=== PATIENT | female | born 1965 | race Two or more races ===

== ENCOUNTER → 2017-02-23 | Outpatient (CLI) | payer OTHER ==
[~2017-02-23] MED LIST: ERYTHROMYCIN; ESTRADIOL; LEVO25TA2 PO
== END | disposition home or self-care (01) ==
LOC: LAB 12:06
PROVIDERS: ATTEND Internal Medicine Endocrinology, Diabetes & Metabolism
DX: E89.0 Postprocedural hypothyroidism (principal)
CPT/HCPCS: 36415; 84439; 84443

== ENCOUNTER → 2017-05-24 | Outpatient (CLI) | payer OTHER | LOC: LAB 17:41 | PROVIDERS: ATTEND Obstetrics & Gynecology | DX: Z02.9 Encounter for administrative examinations, unspecified (principal) ==

== ENCOUNTER → 2017-05-26 | Outpatient (CLI) | payer OTHER ==
[2017-05-26 14:50] LABS: HEMOGLOBIN 12.2 g/dL (11.7-16.4); WHITE BLOOD COUNT 5.3 x10^3/uL (3.4-10)
== END | disposition home or self-care (01) ==
LOC: LAB 14:14
PROVIDERS: ATTEND Obstetrics & Gynecology
DX: E55.9 Vitamin D deficiency, unspecified (principal); N93.8 Other specified abnormal uterine and vaginal bleeding; N92.1 Excessive and frequent menstruation with irregular cycle
CPT/HCPCS: 36415; 82306; 85025

== ENCOUNTER → 2018-04-28 | Outpatient (CLI) | payer OTHER ==
[2018-04-28 19:03] LABS: FREE T4 (FREE THYROXINE) 1.09 ng/dL (0.76-1.46); THYROID STIMULATING HORMONE 3.01 mIU/L (0.358-3.740)
== END | disposition home or self-care (01) ==
LOC: LAB 11:13
PROVIDERS: ATTEND Internal Medicine Endocrinology, Diabetes & Metabolism
DX: E55.9 Vitamin D deficiency, unspecified (principal); E34.9 Endocrine disorder, unspecified; E89.0 Postprocedural hypothyroidism
CPT/HCPCS: 36415; 82306; 82670; 83001; 84439; 84443

== ENCOUNTER → 2018-09-19 | Outpatient (CLI) | payer OTHER ==
[2018-09-19 14:04] LABS: FREE T4 (FREE THYROXINE) 0.82 ng/dL (0.76-1.46); THYROID STIMULATING HORMONE 10.3 mIU/L (0.358-3.740)
== END | disposition home or self-care (01) ==
LOC: LAB 13:30
PROVIDERS: ATTEND Physician Assistant Medical
DX: E89.0 Postprocedural hypothyroidism (principal)
CPT/HCPCS: 36415; 84439; 84443

== ENCOUNTER → 2018-11-28 | Outpatient (CLI) | payer OTHER | END | disposition home or self-care (01) | LOC: LAB 12:45 | PROVIDERS: ATTEND Obstetrics & Gynecology Female Pelvic Medicine and Reconstructive Surgery | DX: E34.9 Endocrine disorder, unspecified (principal) | CPT/HCPCS: 36415; 82670; 82677; 83001; 83002 ==

== ENCOUNTER 2019-03-11 07:14 | Outpatient (CLI) | payer OTHER | END 2019-03-11 23:59 | disposition home or self-care (01) | LOC: CFH 07:14 | PROVIDERS: ATTEND Obstetrics & Gynecology Female Pelvic Medicine and Reconstructive Surgery | DX: Z12.31 Encounter for screening mammogram for malignant neoplasm of breast (principal); R93.89 Abnormal findings on diagnostic imaging of other specified body structures | CPT/HCPCS: 76830; 77067 ==

== ENCOUNTER → 2019-07-16 | Outpatient (CLI) | payer OTHER ==
[2019-07-16 14:24] LABS: FREE T4 (FREE THYROXINE) 1.17 ng/dL (0.76-1.46)
== END | disposition home or self-care (01) ==
LOC: LAB 13:53
PROVIDERS: ATTEND Internal Medicine Endocrinology, Diabetes & Metabolism
DX: E89.0 Postprocedural hypothyroidism (principal)
CPT/HCPCS: 36415; 84439; 84443

== ENCOUNTER 2019-08-17 14:20 | Emergency (ER) | payer OTHER ==
[~2019-08-17] VITALS: Ht 167.6 cm; Wt 74.2 kg
[2019-08-17 14:31] VITALS: BP 142/55
== END 2019-08-17 16:11 | disposition home or self-care (01) ==
LOC: ED 16:09
DX: M25.512 Pain in left shoulder (principal); R20.0 Anesthesia of skin
CPT/HCPCS: 99283

== ENCOUNTER → 2019-08-27 | Outpatient (CLI) | payer OTHER | END | disposition home or self-care (01) | LOC: RAD 11:41 | PROVIDERS: ATTEND Internal Medicine Hematology & Oncology | DX: M25.512 Pain in left shoulder (principal) ==

== ENCOUNTER 2019-09-04 09:07 | Outpatient (CLI) | payer OTHER ==
[2019-09-04 09:40] LABS: FREE T4 (FREE THYROXINE) 1.26 ng/dL (0.76-1.46)
== END 2019-09-04 23:59 | disposition home or self-care (01) ==
LOC: LAB 09:07
PROVIDERS: ATTEND Internal Medicine Endocrinology, Diabetes & Metabolism
DX: E89.0 Postprocedural hypothyroidism (principal)
CPT/HCPCS: 36415; 84439; 84443

== ENCOUNTER → 2020-04-29 | Outpatient (CLI) | payer OTHER ==
[2020-04-29 11:46] LABS: FREE T4 (FREE THYROXINE) 1.3 ng/dL (0.76-1.46)
== END | disposition home or self-care (01) ==
LOC: LAB 11:05
PROVIDERS: ATTEND Internal Medicine Endocrinology, Diabetes & Metabolism
DX: E89.0 Postprocedural hypothyroidism (principal)
CPT/HCPCS: 36415; 84439; 84443

== ENCOUNTER → 2020-06-20 | Outpatient (CLI) | payer OTHER | END | disposition home or self-care (01) | LOC: CFH 07:52 | PROVIDERS: ATTEND Obstetrics & Gynecology Female Pelvic Medicine and Reconstructive Surgery | DX: Z12.31 Encounter for screening mammogram for malignant neoplasm of breast (principal) | CPT/HCPCS: 77067 ==

== ENCOUNTER → 2020-07-07 | Outpatient (CLI) | payer OTHER ==
[2020-07-07 14:44] LABS: FREE T4 (FREE THYROXINE) 1.1 ng/dL (0.76-1.46)
== END | disposition home or self-care (01) ==
LOC: LAB 14:12
PROVIDERS: ATTEND Nurse Practitioner Primary Care
DX: E89.0 Postprocedural hypothyroidism (principal)
CPT/HCPCS: 36415; 84439; 84443

== ENCOUNTER 2021-03-15 20:32 | Inpatient (IN) | payer OTHER ==
[~2021-03-15] VITALS: Ht 167.6 cm; Wt 74.9 kg
[2021-03-15] MEDS ORDERED: ONDANSETRON ODT 4 MG PO ONE (21:00)
[2021-03-15] MEDS ORDERED: PLEASE ENTER HEIGHT AND WEIGHT MC SCH (21:00)
[2021-03-15] MEDS ORDERED: SODIUM CHLORIDE FLUSH 10ML SYR IVF ONE (21:30)
[2021-03-15] MEDS ORDERED: SODIUM CHLORIDE 0.9% 1,000ML IVBOLUS ONE (21:30)
[2021-03-15] MEDS ORDERED: METOCLOPRAMIDE 5 MG/ML, 2ML IVPush ONE (21:30)
[2021-03-15] MEDS ORDERED: DIPHENHYDRAMINE 50 MG/ML, 1ML IVPush ONE (21:30)
[2021-03-15] MEDS ORDERED: DIPHENHYDRAMINE 50 MG/ML, 1ML ONE (21:38)
[2021-03-15] MEDS ORDERED: MORPHINE SULFATE 4 MG/ML, 1ML ONE ×2 (21:38→23:58)
[2021-03-15] MEDS ORDERED: METOCLOPRAMIDE 5 MG/ML, 2ML ONE (21:38)
--- NOTE | 2021-03-15 21:42 | NUR ---
BEDSIDE REPORT TO DALLAS PATINO
[2021-03-15] MEDS: MORPHINE SULFATE 4 MG/ML, 1ML IVPush PRN (21:46)
--- NOTE | 2021-03-15 21:51 | NUR ---
PT MEDICATED PER SEP, TRANSPORTED TO [facility].
[2021-03-15 22:14] LABS: BASOPHILS % (AUTO) 1 % (0-1); EOSINOPHILS % (AUTO) 1 % (1-7); LYMPHOCYTES % (AUTO) 26 % (22-44); MEAN CORPUSCULAR HEMOGLOBIN 31.8 pg (27.0-34.8); MEAN CORPUSCULAR HGB CONC 34.7 g/dL (32.4-35.8); MEAN PLATELET VOLUME 9.4 fL (7.4-10.4); MONOCYTES % (AUTO) 6 % (2-9); NEUTROPHILS % (AUTO) 68 % (42-75); PLATELET COUNT 158 x10^3/uL (130-400); RED BLOOD COUNT 4.96 x10^6/uL (3.82-5.3); RED CELL DISTRIBUTION WIDTH 13.1 % (9.6-15.2)
--- NOTE | 2021-03-15 22:14 | NUR ---
PT UNABLE TO PROVIDE URINE SAMPLE AT THIS TIME.
[2021-03-15 22:23] LABS: ALANINE AMINOTRANSFERASE 20 U/L (12-78); ALBUMIN 3.7 g/dL (3.4-5.0); ANION GAP 9 mmol/L (5-15); CALCIUM 9.5 mg/dL (8.5-10.1); CHLORIDE 106 mmol/L (98-107); CREATININE 0.93 mg/dL (0.55-1.02)
[2021-03-15 22:25] LABS: ALKALINE PHOSPHATASE 90 U/L (45-117); BILIRUBIN,TOTAL 0.5 mg/dL (0.2-1.0)
--- NOTE | 2021-03-15 22:45 | NUR ---
PT TRANSPORTED TO CT.
[2021-03-15] MEDS ORDERED: OMNIPAQUE 350 MG/ML, 100ML BOTTLE ONE (22:50)
--- NOTE | 2021-03-15 22:58 | NUR ---
REPORT TO LALA PATINO.
[2021-03-15 23:21] LABS: MICROSCOPIC AUTO
[2021-03-16] MEDS: MORPHINE SULFATE 4 MG/ML, 1ML IVPush PRN
--- NOTE | 2021-03-16 00:49 | NUR ---
WENT INTO PLACE NG TUBE FOR PATIENT AND PATIENT INSISTENT THAT SHE PUT IN HER OWN NG TUBE. RN EXPLAINED TO PATIENT THAT SHE CANNOT PLACE HER OWN NG TUBE BECAUSE OF LIABILITY PURPOSES AND HER OWN SAFETY. PATIENT STILL DENIED LETTING RN TO PLACE NG TUBE. ASSIGNMENT DESK EDITOR NICHO NOTIFIED AND WENT INTO SPEAK WITH PATIENT. PATIENT STILL DENIED LETTING RN PLACE NG TUBE. PHYSICIAN LAW NOTIFIED AND TO SPEAK WITH PATINET
--- NOTE | 2021-03-16 00:50 | NUR ---
PT RESTING ON CART IN NAD. A&OX4. PT AWARE OF NEED FOR NG TUBE PLACEMENT. PT REFUSING RN TO PLACE NG TUBE. THIS RN AT BS TO EXPLAIN POTENTIAL DANGERS OF SELF PLACEMENT. 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 ILL KNOW IF ITS IN THE RIGHT PLACE OVER HIM (REF BEDSIDE RN).".
--- NOTE | 2021-03-16 01:24 | NUR ---
9f ng tube placed after several attempts c 17f & 13f c pts assistance. 200cc yellow bile return, placed at intermittent suction. pt transported to floor at this time.
[2021-03-16 02:00] VITALS: BP 138/85
[2021-03-16] MEDS ORDERED: LEVO112T2 PO (02:16)
[2021-03-16] MEDS ORDERED: ONDANSETRON 2MG/ML, 2ML IVPush PRN (03:00)
[2021-03-16] MEDS ORDERED: morphine SULFATE 10 MG/ML, 1ML IVPush PRN (03:00)
[2021-03-16] MEDS ORDERED: LABETALOL 5MG/ML, 20ML IVPush PRN (03:00)
[2021-03-16] MEDS: ENOXAPARIN 40 MG/0.4 ML SQ SCH (03:00)
[2021-03-16] MEDS ORDERED: KETOROLAC 30 MG/1 ML IV PRN (03:00)
[2021-03-16] MEDS ORDERED: LORazepam 2 MG/ML, 1ML IVPush PRN (03:00)
[2021-03-16] MEDS: LACTATED RINGERS 1,000 ML IV SCH ×3 (03:30→20:22)
[2021-03-16 07:15] VITALS: BP 116/53
[2021-03-16 09:09] LABS: BASOPHILS % (AUTO) 1 % (0-1); EOSINOPHILS % (AUTO) 1 % (1-7); LYMPHOCYTES % (AUTO) 36 % (22-44); MEAN CORPUSCULAR HEMOGLOBIN 31.1 pg (27.0-34.8); MEAN CORPUSCULAR HGB CONC 33.7 g/dL (32.4-35.8); MEAN PLATELET VOLUME 8.7 fL (7.4-10.4); MONOCYTES % (AUTO) 10 % (2-9); NEUTROPHILS % (AUTO) 53 % (42-75); PLATELET COUNT 137 x10^3/uL (130-400); RED BLOOD COUNT 4.46 x10^6/uL (3.82-5.3); RED CELL DISTRIBUTION WIDTH 13.1 % (9.6-15.2)
[2021-03-16 09:18] LABS: CHLORIDE 111 mmol/L (98-107)
[2021-03-16 10:15] LABS: ANION GAP 5 mmol/L (5-15); CALCIUM 8.1 mg/dL (8.5-10.1); CREATININE 0.68 mg/dL (0.55-1.02); FREE T4 (FREE THYROXINE) 0.95 ng/dL (0.76-1.46)
[2021-03-16 13:22] VITALS: BP 124/52
[2021-03-16 19:38] VITALS: BP 123/67
[2021-03-17 02:33] VITALS: BP 117/66
[2021-03-17] MEDS: LACTATED RINGERS 1,000 ML IV SCH ×2 (03:35→11:00)
[2021-03-17 07:52] VITALS: BP 130/68
[2021-03-17] MEDS: ENOXAPARIN 40 MG/0.4 ML SQ SCH (08:01)
== END 2021-03-17 12:43 | disposition home or self-care (01) | DRG 392 ==
LOC: ED 23:08 → EDIP 03-16 00:42 → 4NE 03-16 01:28
PROVIDERS: ADMIT Internal Medicine; ATTEND Internal Medicine
DX: K52.9 Noninfective gastroenteritis and colitis, unspecified (principal); K56.609 Unspecified intestinal obstruction, unspecified as to partial versus complete obstruction; F19.10 Other psychoactive substance abuse, uncomplicated; E87.6 Hypokalemia; E86.0 Dehydration; E03.9 Hypothyroidism, unspecified; Z79.899 Other long term (current) drug therapy
CPT/HCPCS: 36415; 74021; 74022; 74177; 80048; 80053; 81001; 83690; 84439; 84443; 85025; 87086; 96361; 96374; 96375; 99285; G0378; Q9967; J1200; J2270; J2765; J7030; J7120